=== PATIENT | male | born 1935 | race Caucasian/White ===

== ENCOUNTER 2023-02-15 15:50 | Outpatient (CLI) | payer OTHER ==
[2023-02-15 16:47] LABS: #Basophils 0.1 10x3/uL (0.0-0.2); #Eosinphils 0.1 10x3/uL (0.0-0.5); #Monocytes 0.4 10x3/uL (0.0-1.1); #Neutrophils 3.1 10x3/uL (1.5-8.4); %Eosinophils 2.6 % (0.0-6.0); %Lymphocytes 26.2 % (18.0-47.0); %Monocytes 8.3 % (0.0-10.0); %Neutrophils 61.9 % (40.0-75.0); Hematocrit 39.4 % (38.8-50.0); Hemoglobin 13.2 g/dL (13.5-17.5); Mean Corpuscular HGB CONC 33.5 g/dL (32.0-36.0); Mean Corpuscular Hemoglobin 31.7 pg (27.0-33.0); Mean Corpuscular Volume 94.7 fl (81.2-95.1); Mean Platelet Volume 9.4 fl (7.4-10.4); Platelet Count 240 10x3/uL (150-450); RBC Distribution Width 13.7 % (11.5-14.5); Red Blood Cell (RBC) Count 4.16 10x6/uL (4.32-5.72); White Blood Cell (WBC) Count 4.9 10x3/uL (3.5-10.5)
[2023-02-15 17:20] LABS: ALT (SGPT) 26 U/L (8-55); AST (SGOT) 23 U/L (5-34); Alkaline Phosphatase 37 U/L (40-110); Anion Gap 12 mmol/L (10-20); BUN (Urea Nitrogen) 12 mg/dL (8.4-25.7); Bilirubin, Total 0.6 mg/dL (0.2-1.2); Calc. Creatinine Clearance 0 mL/min (70-130); Calcium 9.4 mg/dL (7.8-10.44); Carbon Dioxide 30 mmol/L (23-31); Chloride 103 mmol/L (98-107); Estimated GFR 84; Globulin 2.5 g/dL (2.4-3.5); Glucose 58 mg/dL (83-110); Potassium 3.8 mmol/L (3.5-5.1); Protein, Total 6.5 g/dL (5.8-8.1); Sodium 141 mmol/L (136-145)
== END 2023-02-15 15:51 | disposition home or self-care (01) ==
LOC: LABBT 15:50
PROVIDERS: ATTEND Surgery
DX: Z01.818 Encounter for other preprocedural examination (principal); K40.90 Unilateral inguinal hernia, without obstruction or gangrene, not specified as recurrent
CPT/HCPCS: 80053; 85025; 93005; 93010

== ENCOUNTER 2023-02-17 10:12 | Observation (INO) | payer OTHER ==
[2023-02-17] MEDS ORDERED: EPINEPHrine 1 MG/ML VIAL ONE (11:17)
[2023-02-17] MEDS ORDERED: Bupivacaine 0.25% HCL 30 ML VIAL ONE (11:17)
[2023-02-17] MEDS ORDERED: PROPOFOL 20 ML ONE (11:23)
[2023-02-17] MEDS ORDERED: fentaNYL PF 100 MCG/2 ML SYRINGE ONE (11:23)
[2023-02-17] MEDS ORDERED: CEFAZOLIN 2 GM VIAL ONE (11:30)
[2023-02-17] MEDS ORDERED: Sodium Chloride 0.9% 100 ML ONE (11:31)
[2023-02-17] MEDS ORDERED: Ondansetron PF 4 MG/2 ML Vial ONE (12:21)
[2023-02-17] MEDS ORDERED: ePHEDrine Sulfate 50 MG/10 ML VIAL ONE (12:26)
[2023-02-17] MEDS ORDERED: Dextrose 50% Abboject 50 ML SYRINGE ONE (15:54)
[2023-02-17] MEDS ORDERED: Dextrose 5% in Water 1,000 ML IV PRN (17:43)
[2023-02-17] MEDS ORDERED: Glucagon 1 MG/ML KIT IM PRN (17:43)
[2023-02-17] MEDS ORDERED: Dextrose 50% Abboject 50 ML SYRINGE SLOW IVP PRN (17:43)
[2023-02-17] MEDS ORDERED: Insulin Regular 300 UNITS/3 ML VIAL SC PRN ×3 (17:43→20:54)
[2023-02-17] MEDS ORDERED: 1/2 NS w/KCL 20 mEq 1,000 ML IV SCH ×2 (17:45→20:36)
[2023-02-17] MEDS ORDERED: HYDROcodone/Acetaminophen 7.5/325 mg Tablet PO PRN ×2 (17:46)
[2023-02-17] MEDS ORDERED: Ondansetron PF 4 MG/2 ML Vial IVP PRN (17:46)
[2023-02-17 17:55] LABS: Hematocrit 34.8 % (42.0-52.0); Hemoglobin 11.9 g/dL (14.0-18.0)
[2023-02-17] MEDS ORDERED: HYDROcodone/Acetaminophen 5/325 mg Tablet ONE (18:02)
[2023-02-17 20:16] VITALS: BMI 21.4
[2023-02-17] MEDS ORDERED: Gabapentin 300 MG CAP PO PRN (20:37)
[2023-02-17] MEDS ORDERED: Atorvastatin Calcium 40 MG TAB PO SCH (21:00)
[2023-02-17] MEDS ORDERED: Donepezil HCl 10 MG TAB PO SCH (21:00)
[2023-02-18 00:41] LABS: Hemoglobin 11.1 g/dL (14.0-18.0)
[2023-02-18 00:58] LABS: Anion Gap 14 mmol/L (10-20); BUN (Urea Nitrogen) 11 mg/dL (8.4-25.7); Calc. Creatinine Clearance 62 mL/min (70-130); Calcium 8.3 mg/dL (7.8-10.44); Carbon Dioxide 22 mmol/L (23-31); Chloride 108 mmol/L (98-107); Estimated GFR 87; Glucose 133 mg/dL (83-110); Magnesium 1.8 mg/dL (1.6-2.6); Sodium 141 mmol/L (136-145)
[2023-02-18] MEDS: Potassium Chloride 20 MEQ TAB PO SCH ×2 (01:37→03:46)
[2023-02-18 05:49] LABS: Hemoglobin 11.5 g/dL (14.0-18.0)
[2023-02-18] MEDS ORDERED: Levothyroxine Sodium 75 MCG TAB PO SCH (06:00)
[2023-02-18] MEDS ORDERED: Glimepiride 2 MG TAB PO SCH (08:00)
[2023-02-18] MEDS ORDERED: Tamsulosin HCl 0.4 MG CAP PO SCH (09:00)
[2023-02-18] MEDS ORDERED: FLU VACC QS2023(65UP)/MF59C/PF 60 MCG/0.5 ML SYRINGE IM ONE (09:00)
[2023-02-18] MEDS ORDERED: Floranex 1 GM Packet PO SCH (09:00)
[2023-02-18] MEDS ORDERED: Fludrocortisone Acetate 0.1 MG TAB PO SCH (09:00)
[2023-02-18] MEDS ORDERED: Folic Acid 1 MG TAB PO SCH (09:00)
[2023-02-18 11:23] VITALS: BP 113/57; TEMP 98.9
[2023-02-18 12:51] LABS: Hematocrit 32.3 % (42.0-52.0); Hemoglobin 11.1 g/dL (14.0-18.0)
== END 2023-02-18 13:26 | disposition home or self-care (01) ==
LOC: SDC 10:12 → 2NO 16:53
PROVIDERS: ADMIT Surgery; ATTEND Surgery
PROC: 0YU60JZ Supplement Left Inguinal Region with Synthetic Substitute, Open Approach (ICD-10-PCS; principal; 2023-02-17)
DX: K40.90 Unilateral inguinal hernia, without obstruction or gangrene, not specified as recurrent (principal); N43.3 Hydrocele, unspecified; E78.00 Pure hypercholesterolemia, unspecified; E11.9 Type 2 diabetes mellitus without complications; I25.10 Atherosclerotic heart disease of native coronary artery without angina pectoris; E03.9 Hypothyroidism, unspecified; R55 Syncope and collapse; Z96.659 Presence of unspecified artificial knee joint; Z79.82 Long term (current) use of aspirin; Z79.84 Long term (current) use of oral hypoglycemic drugs; Z79.899 Other long term (current) drug therapy; Z95.5 Presence of coronary angioplasty implant and graft; Z79.890 Hormone replacement therapy; I50.20 Unspecified systolic (congestive) heart failure
CPT/HCPCS: 49505; 80048; 82962 ×2; 83735; 85014 ×3; 85018 ×3; 93005; C1781; J0171; 36415; 36416; 93010; J2405; J2704; J3480; J3490; J7999; S0020

== ENCOUNTER 2023-08-29 23:12 | Inpatient (IN) | payer OTHER ==
[2023-08-30] MEDS ORDERED: Ondansetron PF 4 MG/2 ML Vial IVP PRN (00:26)
[2023-08-30] MEDS ORDERED: Acetaminophen 650 MG Suppository PR PRN (00:26)
[2023-08-30] MEDS ORDERED: Ondansetron ODT 4 MG TAB PO PRN (00:26)
[2023-08-30] MEDS ORDERED: Dextrose 5% in Water 1,000 ML IV PRN (00:57)
[2023-08-30] MEDS ORDERED: Glucagon 1 MG/ML KIT IM PRN (00:57)
[2023-08-30] MEDS ORDERED: Dextrose 50% Abboject 50 ML SYRINGE SLOW IVP PRN (00:57)
[2023-08-30] MEDS ORDERED: HumaLOG 300 UNITS/3 ML VIAL SC PRN (00:57)
[2023-08-30 01:12] VITALS: BMI 23.8
[2023-08-30 02:29] LABS: Hematocrit 23.7 % (42.0-52.0); Mean Corpuscular HGB CONC 33.8 g/dL (32.0-36.0); Mean Corpuscular Hemoglobin 28.8 pg (27.0-31.0); Mean Corpuscular Volume 85.3 fL (78.0-98.0); Mean Platelet Volume 10.7 fL (7.4-10.4); Platelet Count 23 10x3/uL (130-400); RBC Distribution Width 18.5 % (11.5-14.5); Red Blood Cell (RBC) Count 2.78 mill/uL (4.70-6.10)
[2023-08-30 02:30] LABS: INR-International Normal Ratio 1.4; Magnesium 2.1 mg/dL (1.6-2.6); Prothrombin Time 17.1 sec (12.0-14.7)
[2023-08-30 02:31] LABS: PTT 36.7 sec (22.9-36.1)
[2023-08-30] MEDS: Pantoprazole 40 MG VIAL IVP SCH (02:33)
[2023-08-30 02:36] LABS: Troponin I 0.128 ng/mL (< 0.028)
[2023-08-30 02:48] LABS: Band 2 % (5-11); Elliptocytes SLIGHT = 2-5 cells HPF (0-1); Eosinophils 2 % (0-10); Hypochromia SLIGHT = 6-15 cells HPF (0-5); Lymphocytes 22 % (21-51); Monocytes 4 % (0-10); Myelocyte 3 % (0-0); Neutrophil 31 % (42-75); Nucleated RBC (Manual Ct) 7 % (0); Platelet Adequacy Comment Platelets Decreased; Polychromasia SLIGHT = 2-3 cells HPF (0-2)
[2023-08-30 05:09] LABS: Anion Gap 19 mmol/L (10-20); BUN (Urea Nitrogen) 17 mg/dL (8.4-25.7); Calc. Creatinine Clearance 68 mL/min (70-130); Calcium 8.7 mg/dL (7.8-10.44); Carbon Dioxide 20 mmol/L (23-31); Chloride 107 mmol/L (98-107); Estimated GFR 87; Glucose 107 mg/dL (83-110); Potassium 3.5 mmol/L (3.5-5.1); Sodium 142 mmol/L (136-145)
[2023-08-30 08:46] LABS: #Basophils Less than 0.03 10x3/uL (0.0-0.2); %Basophils 0.2 % (0.0-1.0); %Eosinophils 1.7 % (0.0-10.0); %Lymphocytes 29.3 % (21.0-51.0); %Monocytes 24.5 % (0.0-10.0); %Neutrophils 13.7 % (42.0-75.0); Hematocrit 22.5 % (42.0-52.0); Hemoglobin 7.6 g/dL (14.0-18.0); Mean Corpuscular HGB CONC 33.8 g/dL (32.0-36.0); Mean Corpuscular Hemoglobin 28.7 pg (27.0-31.0); Mean Corpuscular Volume 84.9 fL (78.0-98.0); Mean Platelet Volume 9.6 fL (7.4-10.4); Platelet Count 21 10x3/uL (130-400); RBC Distribution Width 19.3 % (11.5-14.5); Red Blood Cell (RBC) Count 2.65 mill/uL (4.70-6.10)
[2023-08-30] MEDS ORDERED: Lidocaine 2% PF 5 ML VIAL ONE (13:10)
[2023-08-30] MEDS ORDERED: PROPOFOL 20 ML ONE (13:11)
[2023-08-30] MEDS: HumaLOG 300 UNITS/3 ML VIAL SC PRN (17:17)
[2023-08-31 04:28] LABS: Hematocrit 19.9 % (42.0-52.0); Hemoglobin 6.7 g/dL (14.0-18.0); Mean Corpuscular HGB CONC 33.7 g/dL (32.0-36.0); Mean Corpuscular Hemoglobin 28.9 pg (27.0-31.0); Mean Corpuscular Volume 85.8 fL (78.0-98.0); Mean Platelet Volume 10.8 fL (7.4-10.4); Platelet Count 18 10x3/uL (130-400); Red Blood Cell (RBC) Count 2.32 mill/uL (4.70-6.10)
[2023-08-31 04:35] LABS: Platelet Count 17 10x3/uL (130-400)
[2023-08-31 04:40] LABS: INR-International Normal Ratio 1.4; Prothrombin Time 17.3 sec (12.0-14.7)
[2023-08-31 04:41] LABS: PTT 35.8 sec (22.9-36.1)
[2023-08-31 04:45] LABS: Anion Gap 12 mmol/L (10-20); BUN (Urea Nitrogen) 16 mg/dL (8.4-25.7); Calc. Creatinine Clearance 64 mL/min (70-130); Calcium 8.2 mg/dL (7.8-10.44); Carbon Dioxide 25 mmol/L (23-31); Chloride 108 mmol/L (98-107); Estimated GFR 85; Glucose 110 mg/dL (83-110); Potassium 2.9 mmol/L (3.5-5.1); Sodium 142 mmol/L (136-145); Uric Acid 6.7 mg/dL (3.5-7.2)
[2023-08-31 04:46] LABS: Fibrinogen 186 mg/dL (253-463)
[2023-08-31 05:07] LABS: D-Dimer Test Greater than 20.00 mcg/mL (0.27-0.43)
[2023-08-31 05:17] LABS: Band 5 % (5-11); Hypochromia SLIGHT = 6-15 cells HPF (0-5); Large Platelets 3.7 % (0-5); Lymphocytes 34 % (21-51); Metamyelocyte 2 % (0-0); Monocytes 1 % (0-10); Neutrophil 21 % (42-75); Nucleated RBC (Manual Ct) 4 % (0); Platelet Adequacy Comment Platelets Decreased; Polychromasia SLIGHT = 2-3 cells HPF (0-2)
[2023-08-31] MEDS: Potassium Chloride 20 MEQ TAB PO SCH (09:48)
[2023-08-31 20:30] LABS: Glucose 137 mg/dL (83-110)
[2023-09-01 05:16] LABS: Platelet Count 18 10x3/uL (130-400)
[2023-09-01 05:17] LABS: Hematocrit 25.5 % (42.0-52.0); Hemoglobin 8.9 g/dL (14.0-18.0); Mean Corpuscular HGB CONC 34.9 g/dL (32.0-36.0); Mean Corpuscular Hemoglobin 28.9 pg (27.0-31.0); Mean Corpuscular Volume 82.8 fL (78.0-98.0); Mean Platelet Volume 9.5 fL (7.4-10.4); Platelet Count 16 10x3/uL (130-400); RBC Distribution Width 18.1 % (11.5-14.5); Red Blood Cell (RBC) Count 3.08 mill/uL (4.70-6.10)
[2023-09-01 05:26] LABS: INR-International Normal Ratio 1.5; Prothrombin Time 17.9 sec (12.0-14.7)
[2023-09-01 05:27] LABS: PTT 42.2 sec (22.9-36.1)
[2023-09-01 05:31] LABS: Anion Gap 12 mmol/L (10-20); BUN (Urea Nitrogen) 16 mg/dL (8.4-25.7); Calc. Creatinine Clearance 68 mL/min (70-130); Calcium 8.1 mg/dL (7.8-10.44); Carbon Dioxide 23 mmol/L (23-31); Chloride 104 mmol/L (98-107); Estimated GFR 87; Glucose 108 mg/dL (83-110); Potassium 3.2 mmol/L (3.5-5.1); Sodium 136 mmol/L (136-145); Uric Acid 5.4 mg/dL (3.5-7.2)
[2023-09-01 05:32] LABS: Fibrinogen 155 mg/dL (253-463)
[2023-09-01 05:47] LABS: D-Dimer Test Greater than 20.00 mcg/mL (0.27-0.43)
[2023-09-01 05:59] LABS: Anisocytosis SLIGHT = 6-15 cells HPF (0-5); Band 3 % (5-11); Eosinophils 1 % (0-10); Lymphocytes 55 % (21-51); Monocytes 17 % (0-10); Neutrophil 24 % (42-75); Nucleated RBC (Manual Ct) 3 % (0); Ovalocytes MODERATE= 6-15 cells HPF (0-1); Platelet Adequacy Comment Significant Decrease; Polychromasia SLIGHT = 2-3 cells HPF (0-2)
[2023-09-01] MEDS: Acetaminophen 325 MG TAB PO PRN (12:16)
[2023-09-01 16:09] VITALS: BP 135/66; TEMP 98
[2023-09-01] MEDS ORDERED: Donepezil HCl 10 MG TAB PO SCH (21:00)
[2023-09-02] MEDS ORDERED: Levothyroxine Sodium 75 MCG TAB PO SCH (06:00)
[2023-09-02] MEDS ORDERED: Gabapentin 300 MG CAP PO SCH (09:00)
[2023-09-02] MEDS ORDERED: Fludrocortisone Acetate 0.1 MG TAB PO SCH (09:00)
[2023-09-02] MEDS ORDERED: Folic Acid 1 MG TAB PO SCH (09:00)
== END 2023-09-01 16:17 | disposition short-term general hospital (02) | DRG 811 ==
LOC: 2NO 23:12 → OBSVTOIN 08-30 00:26
PROVIDERS: ADMIT Student in an Organized Health Care Education/Training Program; ATTEND Hospitalist
PROC: 0DJ08ZZ Inspection of Upper Intestinal Tract, Via Natural or Artificial Opening Endoscopic (ICD-10-PCS; principal; 2023-08-30)
PROC: 30233N1 Transfusion of Nonautologous Red Blood Cells into Peripheral Vein, Percutaneous Approach (ICD-10-PCS; 2023-08-31)
DX: D62 Acute posthemorrhagic anemia (principal); I21.A1 Myocardial infarction type 2; C95.90 Leukemia, unspecified not having achieved remission; I25.10 Atherosclerotic heart disease of native coronary artery without angina pectoris; E11.9 Type 2 diabetes mellitus without complications; S70.02XA Contusion of left hip, initial encounter; K29.70 Gastritis, unspecified, without bleeding; D69.6 Thrombocytopenia, unspecified; D72.829 Elevated white blood cell count, unspecified; E03.9 Hypothyroidism, unspecified; E78.00 Pure hypercholesterolemia, unspecified; Z79.82 Long term (current) use of aspirin; Z79.899 Other long term (current) drug therapy
CPT/HCPCS: 36415; 36416; 36430; 70450; 71260; 72125; 74177; 80048; 80053; 81001; 82550; 83615; 83735; 84484; 84550; 85025; 85049; 85060; 85300; 85362; 85384; 85610; 85730; 86850; 86900; 86901; 87040; 88184; 88185; 93005; 93010; 93306; C9113; J1815; J2001; J2704; P9016; Q9967